=== PATIENT | female | born 1980 | race Caucasian/White ===

== ENCOUNTER 2017-04-22 07:18 | Emergency (ER) | payer SELFPAY ==
[~2017-04-22] VITALS: Ht 165.1 cm; Wt 2.4 kg
--- NOTE | 2017-04-22 07:24 | NUR ---
PRESENTS SELF TO ED DUE TO DIARRHEA AND VOMITTING X 3 DAYS. PATIENT IS AAO4. APPEARS IN NO APPARENT DISTRESS, HOWEVER PATIENT IS APPEARS ANXIOUS. SKIN IS WARM TO TOUCH AND NON DIAPHORETIC. PATIENT IS AFEBRILE. VSS. WILL CONT TO MONITOR
--- NOTE | 2017-04-22 07:34 | NUR ---
MD LAI AT BEDSIDE FOR EVALUATION
[2017-04-22] MEDS ORDERED: ONDANSETRON HCL/PF 4 MG/2 ML VIAL ONE (07:48)
[2017-04-22] MEDS ORDERED: IV SET PRIMARY PUMP SET 1 EA INFUS.SET MC ONE ×2 (07:48→08:29)
[2017-04-22] MEDS ORDERED: IV NS 0.9% 1,000 ML ONE (07:48)
--- NOTE | 2017-04-22 08:00 | NUR ---
IV ACCESSED TO LAC 20. BLOOD SAMPLE SENT TO LAB. DUE MEDS GIVEN ORDERED
[2017-04-22] MEDS: IV NS 0.9% 1,000 ML BAG IV ONE (08:01)
[2017-04-22] MEDS: ONDANSETRON HCL/PF 4 MG/2 ML VIAL IVP ONE (08:01)
[2017-04-22 08:15] LABS: CALCIUM, SERUM 8.9 mg/dL (8.5-10.1); CREATININE 0.9 mg/dL (0.6-1.3); POTASSIUM 3.4 mmol/L (3.5-5.1)
[2017-04-22] MEDS ORDERED: FOLIC ACID 1 MG TABLET ONE (08:28)
[2017-04-22] MEDS ORDERED: THIAMINE HCL 100 MG TABLET ONE (08:28)
[2017-04-22] MEDS ORDERED: IV D5/0.45 NACL 1,000 ML IV ONE (08:29)
[2017-04-22] MEDS ORDERED: LORAZEPAM INJ 2 MG/ML VIAL ONE ×2 (08:31→09:00)
[2017-04-22] MEDS: FOLIC ACID 1 MG TABLET PO ONE (08:40)
[2017-04-22] MEDS: LORAZEPAM INJ 2 MG/ML VIAL IV ONE ×2 (08:41→09:08)
[2017-04-22] MEDS: THIAMINE HCL 100 MG TABLET PO ONE (08:41)
[2017-04-22] MEDS: IV D5/0.45 NACL 500 ML IV ONE (08:41)
--- NOTE | 2017-04-22 08:42 | NUR ---
MEDICATE PT ORDERED
[2017-04-22 10:16] VITALS: BP 125/82
--- NOTE | 2017-04-22 10:16 | NUR ---
IV removed. Catheter intact and site benign. Pressure and 4x4 applied to site. No bleeding noted.
--- NOTE | 2017-04-22 10:16 | NUR ---
PT. VERBALIZED UNDERSTANDING OF AFTERCARE INSTRUCTIONS.Patient discharged to home in stable condition. Written and verbal after care instructions given. Patient verbalizes understanding of instruction.
== END 2017-04-22 10:17 | disposition home or self-care (01) ==
LOC: ER 07:21
DX: R11.2 Nausea with vomiting, unspecified (principal); F10.239 Alcohol dependence with withdrawal, unspecified; E86.0 Dehydration; R06.4 Hyperventilation; E87.2 Acidosis; M62.838 Other muscle spasm; K85.90 Acute pancreatitis without necrosis or infection, unspecified
CPT/HCPCS: 36415; 80048; 84703; 96361; 96374; 96375; 99284; A4606; J2060 ×2; J2405; J3490; J7030

== ENCOUNTER 2017-04-26 08:36 | Emergency (ER) | payer SELFPAY ==
[~2017-04-26] VITALS: Ht 167.6 cm; Wt 54.4 kg
[2017-04-26 08:43] VITALS: BP 133/79
--- NOTE | 2017-04-26 08:45 | NUR ---
seen by minnie theodore for patient to have water per MD.
[2017-04-26] MEDS ORDERED: LORAZEPAM 1 MG TABLET ONE (08:49)
[2017-04-26] MEDS ORDERED: ONDANSETRON 4 MG TAB.RAPDIS ONE (08:50)
[2017-04-26] MEDS ORDERED: ONDANSETRON 4 MG TAB.RAPDIS SL ONE (09:00)
[2017-04-26] MEDS ORDERED: LORAZEPAM 1 MG TABLET PO ONE (09:00)
== END 2017-04-26 09:04 | disposition home or self-care (01) ==
LOC: ER 08:38
DX: F41.9 Anxiety disorder, unspecified (principal); F10.239 Alcohol dependence with withdrawal, unspecified
CPT/HCPCS: A4606; Q0162; Z7610